=== PATIENT | male | born 1955 | race Caucasian/White ===

== ENCOUNTER 2020-05-10 10:01 | Outpatient (REF) | payer OTHER, SELFPAY ==
[2020-05-10 10:43] LABS: MANUAL DIFF FLAG NO
[2020-05-10 10:47] LABS: Basophils Percent Auto 0.5 % (0-2); Eosinophils Absolute Auto 0.2 X10*3/uL (0.0-0.4); Eosinophils Percent Auto 2.9 % (0-4); Hematocrit 45.7 % (42-52); Hemoglobin 15.5 g/dl (14.0-18.0); Imm Gran Abs Auto 0.01 X10*3/uL (0.00-0.03); Imm Gran Pct Auto 0.2 % (0.0-0.4); Lymphocytes Absolute Auto 2.2 X10*3/uL (1.2-4.9); Lymphocytes Percent Auto 36.9 % (20-40); Mean Corpuscular HGB Conc 33.9 g/dl (31.0-36.0); Mean Corpuscular Hemoglobin 32.6 pg (27.0-33.0); Monocytes Absolute Auto 0.7 X10*3/uL (0.1-1.2); Monocytes Percent Auto 11.6 % (2-11); Neutrophils Absolute Auto 2.9 X10*3/uL (2.0-8.3); Neutrophils Percent Auto 47.9 % (45-73); Platelet Count 258 X10*3/uL (160-400); Red Blood Count 4.76 X10*6/uL (4.60-5.80)
[2020-05-10 11:36] LABS: Alanine Aminotransferase 15 U/L (0-40); Albumin Level 4.2 g/dL (3.5-5.0); Alkaline Phosphatase 66 U/L (39-117); Anion Gap 9 (12-20); Aspartate Amino Transferase 19 U/L (5-37); Bilirubin Total 0.9 mg/dL (0.0-1.0); Blood Urea Nitrogen 17 mg/dL (9-16); Calcium 9.3 mg/dL (8.4-10.2); Carbon Dioxide 31 mmol/L (22-29); Chloride 104 mmol/L (96-108); Cholesterol 212 mg/dL; Estimated Glomerular Filt Rate > 60; Glucose Fasting 85 mg/dL (60-99); HDL Cholesterol 48 mg/dL; LDL Cholesterol Calculated 141 mg/dl; Potassium 4.4 mmol/l (3.3-5.1); Sodium 140 mmol/L (135-145); Total Protein 6.5 g/dL (6.5-8.0); Triglycerides 115 mg/dL
[2020-05-10 11:53] LABS: Prostate Specific Antigen 1.94 ng/mL (<0.05-4.0); T4 Thyroxine 7.8 ug/dL (4.5-12.0); Thyroid Stimulating Hormone 1.18 mIU/mL (0.32-4.0)
[2020-05-10 13:12] LABS: Vitamin B12 444 pg/mL (200-900)
== END 2020-05-10 10:02 | disposition home or self-care (01) ==
LOC: HO.LAB 10:01
PROVIDERS: PCP Internal Medicine; Visit Provider Internal Medicine
DX: Z00.00 Encounter for general adult medical examination without abnormal findings (principal); E78.00 Pure hypercholesterolemia, unspecified
CPT/HCPCS: 36415; 80053; 80061; 82607; 82746; 84153; 84436; 84443; 85025

== ENCOUNTER 2021-04-22 11:29 | Outpatient (REF) | payer OTHER, SELFPAY ==
[2021-04-22 11:46] LABS: MANUAL DIFF FLAG NO
[2021-04-22 11:57] LABS: Basophils Percent Auto 0.5 % (0-2); Eosinophils Absolute Auto 0.1 X10*3/uL (0.0-0.4); Eosinophils Percent Auto 2.2 % (0-4); Hematocrit 45.7 % (42-52); Hemoglobin 15.8 g/dl (14.0-18.0); Imm Gran Abs Auto 0.01 X10*3/uL (0.00-0.03); Imm Gran Pct Auto 0.2 % (0.0-0.4); Lymphocytes Absolute Auto 1.9 X10*3/uL (1.2-4.9); Lymphocytes Percent Auto 31.6 % (20-40); Mean Corpuscular HGB Conc 34.6 g/dl (31.0-36.0); Mean Corpuscular Hemoglobin 33.1 pg (27.0-33.0); Mean Corpuscular Volume 95.6 fL (80-98); Mean Platelet Volume 9.9 fL (9.4-12.4); Monocytes Absolute Auto 0.7 X10*3/uL (0.1-1.2); Monocytes Percent Auto 10.8 % (2-11); Neutrophils Absolute Auto 3.3 X10*3/uL (2.0-8.3); Neutrophils Percent Auto 54.7 % (45-73); Platelet Count 265 X10*3/uL (160-400); Red Blood Count 4.78 X10*6/uL (4.60-5.80); Red Cell Distribution Width 12.4 % (11.0-16.0)
[2021-04-22 12:22] LABS: Alanine Aminotransferase 22 U/L (0-40); Albumin Level 4.2 g/dL (3.5-5.0); Alkaline Phosphatase 68 U/L (39-117); Anion Gap 10 (12-20); Aspartate Amino Transferase 20 U/L (5-37); Bilirubin Total 0.9 mg/dL (0.0-1.0); Blood Urea Nitrogen 17 mg/dL (9-16); Calcium 9.6 mg/dL (8.4-10.2); Carbon Dioxide 27 mmol/L (22-29); Chloride 106 mmol/L (96-108); Cholesterol 220 mg/dL; Estimated Glomerular Filt Rate > 60; Glucose Random 89 mg/dL (60-115); HDL Cholesterol 57 mg/dL; LDL Cholesterol Calculated 145 mg/dl; Potassium 4.3 mmol/L (3.3-5.1); Sodium 139 mmol/L (135-145); Total Protein 6.5 g/dL (6.5-8.0); Triglycerides 92 mg/dL
[2021-04-22 12:43] LABS: Free T4 (Free Thyroxine) 1.02 ng/dL (0.71-1.85); Prostate Specific Antigen Scr 2.65 ng/mL (<0.05-4.0); Thyroid Stimulating Hormone 1.36 uIU/mL (0.32-4.0)
[2021-04-22 13:17] LABS: Folate 6.6 ng/mL (> or = 4.0); Vitamin B12 368 pg/mL (200-900)
== END 2021-04-22 11:30 | disposition home or self-care (01) ==
LOC: HO.LAB 11:29
PROVIDERS: PCP Internal Medicine; Visit Provider Internal Medicine
DX: E78.00 Pure hypercholesterolemia, unspecified (principal); Z12.5 Encounter for screening for malignant neoplasm of prostate
CPT/HCPCS: 36415; 80053; 80061; 82607; 82746; 84153; 84439; 84443; 85025

== ENCOUNTER 2022-04-08 07:38 | Outpatient (REF) | payer MEDICARE, SELFPAY ==
[2022-04-08 07:49] LABS: MANUAL DIFF FLAG NO
[2022-04-08 07:56] LABS: Basophils Percent Auto 0.3 % (0-2); Eosinophils Absolute Auto 0.2 X10*3/uL (0.0-0.4); Eosinophils Percent Auto 2.3 % (0-4); Hematocrit 47.2 % (42.0-52.0); Hemoglobin 16.2 g/dl (14.0-18.0); Imm Gran Abs Auto 0.01 X10*3/uL (0.00-0.03); Imm Gran Pct Auto 0.2 % (0.0-0.4); Lymphocytes Absolute Auto 1.8 X10*3/uL (1.2-4.9); Lymphocytes Percent Auto 26.3 % (20-40); Mean Corpuscular HGB Conc 34.3 g/dl (31.0-36.0); Mean Corpuscular Hemoglobin 32.7 pg (27.0-33.0); Mean Corpuscular Volume 95.2 fL (80.0-98.0); Mean Platelet Volume 9.7 fL (9.4-12.4); Monocytes Absolute Auto 0.9 X10*3/uL (0.1-1.2); Monocytes Percent Auto 13.1 % (2-11); Neutrophils Absolute Auto 3.9 x10*3/uL (2.0-8.3); Neutrophils Percent Auto 57.8 % (45-73); Platelet Count 264 X10*3/uL (160-400); Red Blood Count 4.96 X10*6/uL (4.60-5.80); Red Cell Distribution Width 12.2 % (11.0-16.0); White Blood Count 6.7 X10*3/uL (4.8-10.8)
[2022-04-08 08:26] LABS: Alanine Aminotransferase 14 U/L (0-40); Albumin Level 4.1 g/dL (3.5-5.0); Alkaline Phosphatase 72 U/L (39-117); Anion Gap 14 (12-20); Aspartate Amino Transferase 16 U/L (5-37); Blood Urea Nitrogen 11 mg/dL (9-16); Calcium 9.5 mg/dL (8.4-10.2); Carbon Dioxide 27 mmol/L (22-29); Chloride 105 mmol/L (96-108); Cholesterol 215 mg/dL; Estimated Glomerular Filt Rate > 60; Glucose Random 81 mg/dL (60-115); HDL Cholesterol 51 mg/dL; LDL Cholesterol Calculated 136 mg/dl; Potassium 4.3 mmol/L (3.3-5.1); Sodium 142 mmol/L (135-145); Total Protein 6.5 g/dL (6.5-8.0); Triglycerides 141 mg/dL
[2022-04-08 08:46] LABS: Free T4 (Free Thyroxine) 1.13 ng/dL (0.71-1.85); Thyroid Stimulating Hormone 2.43 uIU/mL (0.32-4.0)
[2022-04-08 09:04] LABS: Folate 6.5 ng/mL (> or = 4.0); Vitamin B12 358 pg/mL (200-900)
== END 2022-04-08 07:39 | disposition home or self-care (01) ==
LOC: HO.LAB 07:38
PROVIDERS: PCP Internal Medicine; Visit Provider Internal Medicine
DX: Z12.5 Encounter for screening for malignant neoplasm of prostate (principal); E78.00 Pure hypercholesterolemia, unspecified
CPT/HCPCS: 36415; 80053; 80061; 82607; 82746; 84153; 84439; 84443; 85025

== ENCOUNTER 2022-04-09 16:59 | Emergency (ER) | payer MEDICARE, SELFPAY ==
--- NOTE | ~2022-04-09 | CT_ITS ---
EXAMINATION: CT CERVICAL SPINE WITHOUT CONTRAST CLINICAL INFORMATION: Fall. Neck pain. COMPARISON: None TECHNIQUE: Axial images obtained through the cervical spine. Coronal and sagittal reformatted images are performed at the CT scanner This CT examination was performed using dose optimization techniques as appropriate, variously including the following: *Automated exposure control *Adjustment of mA and/or kV according to patient size (this includes techniques or standardized protocols for targeted exams where dose is matched to indication/reason for exam; i.e. extremities or head) *Use of iterative reconstruction technique DLP: 417.44 mGy-cm FINDINGS: No fracture. No subluxation. No prevertebral soft tissue swelling. There is degenerative disc disease. Cervical disc height narrowing C4-C5 and C5-C6 and C6-C7. Facet joints are normal. CT/CT cervical spine wo IV con IMPRESSION: No acute abnormality CT of cervical spine. Fleischner guidelines were followed.
--- NOTE | ~2022-04-09 | CT_ITS ---
EXAMINATION: CT head/brain wo IV con CLINICAL INFORMATION: Reason for Exam fall w. headstrike/seizure? COMPARISON: None. TECHNIQUE: Contiguous axial imaging was performed from the skull base to vertex without intravenous contrast. Sagittal and coronal reformatted images were obtained. This CT examination was performed using dose optimization techniques as appropriate, variously including the following: * Automated exposure control * Adjustment of mA and/or kV according to patient size (this includes techniques or standardized protocols for targeted exams where dose is matched to indication/reason for exam; i.e. extremities or head) Use of iterative reconstruction technique DLP: 1153 mGy-cm FINDINGS: Left parietal scalp hematoma. No underlying calvarial fracture. The mastoids are clear. Mild scattered paranasal sinus mucosal thickening. Small traumatic subarachnoid hemorrhage along the right sylvian fissure, right temporal convexity, and left superior parietal convexity. Possible trace small blood products along the inferolateral aspect of the right frontal horn (series 12 image 71). No other acute intracranial hemorrhage. No acute territorial edematous infarction. No abnormal mass effect or midline shift is seen. Patel to white matter differentiation is well preserved. No extra-axial fluid collections are identified. No hydrocephalus. No significant volume loss. Patchy periventricular and deep white matter hypoattenuation is consistent with mild small vessel ischemic changes. CT/CT head/brain wo IV con IMPRESSION: 1. Small traumatic subarachnoid blood products involving the right sylvian fissure and right temporal and left parietal convexities. Possible trace blood products in the right frontal horn of the lateral ventricle. No other acute intracranial hemorrhage. 2. Small left parietal scalp hematoma. No underlying calvarial fracture. Above impression was discussed with JOSE ANTONIO Upton on 04/09/2022 at 11:46 PM.
--- NOTE | ~2022-04-09 | XR_ITS ---
EXAMINATION: XR CHEST CLINICAL INFORMATION: Post intubation COMPARISON: None TECHNIQUE: Frontal view of the chest was obtained. FINDINGS: There is no endotracheal tube identified on this study. Cardiac leads overlie the chest. The lungs are well expanded. There is no focal consolidation, edema, or effusion. No pneumothorax. The cardiomediastinal silhouette is within normal limits. No acute osseous abnormality. XR/XR chest 1V IMPRESSION: Clear lungs. No endotracheal tube identified.
[2022-04-09 17:04] VITALS: BP 115/73; PULSE 74; RESP 18; TEMP 36.3; O2SAT 96; BMI 23.4
[2022-04-09 17:44] LABS: Basophils Percent Auto 0.2 % (0-2); Eosinophils Percent Auto 0.3 % (0-4); Imm Gran Abs Auto 0.04 X10*3/uL (0.00-0.03); Imm Gran Pct Auto 0.3 % (0.0-0.4); Mean Platelet Volume 9.9 fL (9.4-12.4); PLT CLUMP 1; SCAN SMEAR FLAG 1
[2022-04-09 17:46] LABS: Hematocrit 40.4 % (42.0-52.0); Hemoglobin 14.4 g/dl (14.0-18.0); Lymphocytes Absolute Auto 1.4 X10*3/uL (1.2-4.9); Lymphocytes Percent Auto 10.9 % (20-40); Mean Corpuscular HGB Conc 35.6 g/dl (31.0-36.0); Mean Corpuscular Hemoglobin 32.7 pg (27.0-33.0); Mean Corpuscular Volume 91.8 fL (80.0-98.0); Monocytes Absolute Auto 1.1 X10*3/uL (0.1-1.2); Monocytes Percent Auto 8.8 % (2-11); Neutrophils Absolute Auto 10.3 x10*3/uL (2.0-8.3); Neutrophils Percent Auto 79.5 % (45-73); Red Cell Distribution Width 11.7 % (11.0-16.0)
[2022-04-09 17:46] LABS: Appearance Urine Clear; Color Urine Yellow; Glucose Urine UA Negative (Negative); Leukocyte Esterase Urine Small (1+) (Negative); Nitrite Urine Negative (Negative); PH 5.5 (5.0-9.0); UMIC TRIGGER UACC YES; Urine Blood Small (1+) (Negative); Urine Ketones 40 mg/dL (Negative); Urine Protein Negative (Neg-Trace)
[2022-04-09 18:04] LABS: Anion Gap 19 (12-20); Blood Urea Nitrogen 9 mg/dL (9-16); Carbon Dioxide 21 mmol/L (22-29); Chloride 92 mmol/L (96-108); Creatinine Clr Calc Pharmacy 101.8; Estimated Glomerular Filt Rate > 60; Glucose Random 90 mg/dL (60-115); Platelet Count 221 X10*3/uL (160-400); Potassium 3.9 mmol/L (3.3-5.1); Sodium 128 mmol/L (135-145)
[2022-04-09 18:05] LABS: MANUAL DIFF FLAG SCAN
[2022-04-09 18:10] LABS: Bacteria Urine None Seen (None Seen); Hyaline Casts Urine 0-2 /LPF (0-2); RBC Urine 0-2 /HPF (0-2); Squamous Epithelial Cell Urine 0-2 /HPF (0-2); UACC Culture Trigger YES; WBC Urine 0-5 /HPF (0-5)
[2022-04-09 18:29] LABS: SLIDE REVIEW VERIFIED
[2022-04-09 22:21] VITALS: BP 147/70; PULSE 66; RESP 18; TEMP 36.8; O2SAT 98
[2022-04-09] MEDS: Ondansetron ODT 4 MG TAB.RAPDIS TRANSLINGU (22:49)
--- NOTE | 2022-04-09 22:50 | PC.NURSE ---
Patient states he has been dry heaving in the bathroom. Zofran ODT administrated. Declined tylenol at this time
--- NOTE | 2022-04-09 23:08 | ED.MALEGU ---
HPI - Male Genitourinary General Chief complaint: Urogenital-Male Stated complaint: Kidney Stones Time Seen by Provider: 04/09/22 23:06 Source: family Mode of arrival: ambulatory Limitations: altered mental status History of Present Illness HPI Narrative: This is a 66-year-old male no significant medical history presenting to the emergency department for complaints of left-sided flank pain, dysuria with concerns of kidney stones X3 days. Patient also had vague complaints of nausea, according to she thinks he passed a kidney stone about 1 day ago. I was called to the waiting room for a patient who was seizing, according to he was standing up, was having severe L flank pain, fell ?syncope, hit his head and then started having a seizure moments after, the seizure was witnessed by other patients, when I arrived he was having a tonic clonic seizure with head strike atleast 20 seconds whitnessed by this FLORENTINO. Patient unable to answer my questions GCS of 9, at the bedside, patient was immediately collared, placed on a backboard and brought into the emergency department for immediate evaluation/stroke protocol based off mechanism. Ordered CT of the head, cervical spine, chest, abdomen and pelvis STAT, called [facility] for STAT stroke read. Patient has no seizure history, no hx of syncopal episodes. Patient is not on anticoagulants. Unable to obtain hx from patient hx obtained from . Related Data Home Medications Medication Instructions Recorded Confirmed No Known Home Meds 04/17/21 04/17/21 Allergies Allergy/AdvReac Type Severity Reaction Status Date / Time No Known Allergies Allergy Verified 04/17/21 11:33 Review of Systems Review of Systems: Yes Unobtainable due to mental status PMFSH Past Medical History Attestation statement: The following information was validated with the patient. Source: old records reviewed and nursing notes reviewed Medical History BPH (benign prostatic hyperplasia) Hypercholesterolemia MRSA infection Renal calculi Surgical History History of tonsillectomy Social History Social History Housing: Apartment Alcohol intake: current Patient Tobacco Use Status: Never used Tobacco e-Cigarette/Vaping Use: Never Used Advance Directives: No Advance Directives Information Provided: No service: No Current occupational status: retired Physical Exam Vital Signs: Vital Signs: Last Vital Signs Temp 98.2 F 04/09/22 22:21 Pulse 66 04/09/22 22:21 Resp 18 04/09/22 22:21 BP 147/70 H 04/09/22 22:21 Pulse Ox 98 04/09/22 22:21 O2 Del Method 04/09/22 22:21 BMI result Body Mass Index 23.4 Vital signs stable Appearance: GCS score of 9 Not responding to questions, opening eyes, drooling. Combative. Moving all extremities. ? Head: Normocephalic, + traumatic head with a large hematoma to the left occiput Eyes: Pupils equal, round and reactive to light.? However bilateral pupils pinpoint s/p fall Neck: Normal inspection.? Neck supple.?In collar CVS: Normal heart rate and rhythm.? Pulses normal.? Respiratory: No respiratory distress.? Breath sounds normal.? Abdomen: Soft and nontender.? Skin: Skin warm and dry.? Normal skin color.? Normal skin turgor.? Extremities: No lower extremity edema. Patient moving all extremities freely. Back: No midline tenderness, no C-spine tenderness, full range of motion, no CVA tenderness bilaterally Neuro: Patient with altered mental status likely secondary to fall, concerns of head bleed versus postictal. Not following commands. Not speaking. Opening eyes. Moving all extremities. Combative. Unable to obtain a thorough neurological examination due to patient not being able to participate.. Course Reevaluation(s) Reevaluation #1: Based off my gross read patient noted to have a right-sided subarachnoid hemorrhage and possible bleeding into the right ventricle. Patient combative, altered, I do not suspect that he is postictal at this time, GCS score of 8, at this time patient will be intubated as he is having difficulty controlling his own airway. 2 mg of Versed was given and despite this patient continued to be combative,. My attending Dr. Reynolds at this time at bedside. Will intubate with 20 mg of etomidate, 80 mg of rocuronium. Time: 23:48 Reevaluation #2: Cough from Tyron who states patient has small subarachnoid hemorrhage to the right, and possibly bleeding into the right ventricle. Noted to have a left hematoma. Immediately called [facility] for trauma transfer. Time: 11:46 Reevaluation #3: Patient accepted at [facility] as a trauma category 1. Patient successfully intubated. Vital signs stable. Propofol will be initiated at this time per protocol. Patient's INR is within normal limits. I had a conversation with and explained situation to her, she tells me that he was complaining of severe left-sided flank pain for few days, was told to come in for further evaluation and treatment. He does have a history of kidney stones. She does know that patient now has a brain bleed likely secondary to head trauma. She reiterates he is not on blood thinners and has no significant medical history. She tells me what happened was that he started complaining of severe left-sided flank pain, turned pale, syncopized, hit his head did moments later started seizing. [facility] called for trauma transfer by laboratory secretary. Time: 23:54 Additional Reevaluation(s): [facility] to come get patient with an ALS crew. MDM - Male Genitourinary MDM Narrative Medical decision making narrative: 2302 Reported fall in waiting room this PA-C responded to this in the waiting room 2315 Delay in obtaining head CT secondary to CT scan being occupied by another patient. Waiting the hallway with patient, IV lines being placed, more info obtained from . 2320 66-year-old male presenting to the emergency department initially for left flank pain concerns of kidney stones X3 days. However I was called to the waiting room for male who had a ? syncopal episode, hit his head and then started seizing. Patient stopped seizing without need of medication. Immediately when this happened patient was placed in a collar, put on a spinal board, moved to the stretcher and brought to CT for STAT imaging. Concerns for possible intracranial hemorrhage based off patient's presentation when I saw him. GCS 9 Physical examination patient with a GCS of 9, unable to obtain an accurate neuro exam as patient is not responding or following commands. Regular rate and rhythm, lungs clear, abdomen soft nontender nondistended. Bilateral pupils pinpoint however reactive. Patient moving all extremities, combative. at the bedside. Plan at this time is labs, PT INR, imaging of the head, cervical spine, chest, abdomen and pelvis. Will rule out intracranial hemorrhage, cervical spine fracture. Less urgent will rule out kidney stones, infection, UTI. Patient had labs obtained in the waiting room which showed a slightly elevated white blood cell count, a sodium of 128, lower than patient's baseline. Coags within normal limits. Urine with white blood cells and blood. COVID negative Medical Records Attestation: I reviewed the patient's medical records. Lab Data Attestation: I reviewed the patient's lab results. Result diagrams: 04/09/22 17:39 04/09/22 17:39 Labs: Lab Results 04/09/22 04/09/22 04/09/22 Range/Units 17:18 17:39 17:39 WBC 13.0 H (4.8-10.8) X10*3/uL RBC 4.40 L (4.60-5.80) X10*6/uL Hgb 14.4 (14.0-18.0) g/dl Hct 40.4 L (42.0-52.0) % MCV 91.8 (80.0-98.0) fL MCH 32.7 (27.0-33.0) pg MCHC 35.6 (31.0-36.0) g/dl RDW 11.7 (11.0-16.0) % Plt Count 221 (160-400) X10*3/uL MPV 9.9 (9.4-12.4) fL Immature Gran % (Auto) 0.3 (0.0-0.4) % Neut % (Auto) 79.5 H (45-73) % Lymph % (Auto) 10.9 L (20-40) % [place] % (Auto) 8.8 (2-11) % Eos % (Auto) 0.3 (0-4) % Baso % (Auto) 0.2 (0-2) % Lymph # (Auto) 1.4 (1.2-4.9) X10*3/uL [place] # (Auto) 1.1 (0.1-1.2) X10*3/uL Eos # (Auto) 0.0 (0.0-0.4) X10*3/uL Baso # (Auto) 0.0 (0.0-0.2) X10*3/uL Abs Immat Gran (auto) 0.04 H (0.00-0.03) X10*3/uL Absolute Neuts (auto) 10.3 H (2.0-8.3) x10*3/uL Absolute Nucleated RBC 0.000 (0.0-0.012) X10*3/uL Nucleated RBC % (auto) 0.0 (0.0-0.2) /100WBC Smear Tech's Comments VERIFIED Sodium 128 L (135-145) mmol/L Potassium 3.9 (3.3-5.1) mmol/L Chloride 92 L (96-108) mmol/L Carbon Dioxide 21 L (22-29) mmol/L Anion Gap 19 (12-20) BUN 9 (9-16) mg/dL Creatinine 0.77 (0.5-1.4) mg/dL Estim Creat Clear Calc 101.8 Estimated GFR > 60 Random Glucose 90 (60-115) mg/dL Calcium 9.0 (8.4-10.2) mg/dL Urine Color Yellow Urine Appearance Clear Urine pH 5.5 (5.0-9.0) Ur Specific [place] 1.010 (1.005-1.025) Urine Protein Negative (Neg-Trace) mg/dL Urine Glucose (UA) Negative (Negative) mg/dL Urine Ketones 40 (Negative) mg/dL Urine Blood Small (1+) H (Negative) Urine Nitrite Negative (Negative) Ur Leukocyte Esterase Small (1+) H (Negative) Urine RBC 0-2 (0-2) /HPF Urine WBC 0-5 (0-5) /HPF Ur Squamous Epith Cells 0-2 (0-2) /HPF Urine Bacteria None Seen (None Seen) Hyaline Casts 0-2 (0-2) /LPF Critical Care Time Critical Care Time Critical Care Time: Yes Total Critical Care Time: 60 Attestation: I attest to this time spent taking care of the patient, obtaining history, physical, reviewing labs, imaging, speaking to my attending, speaking to specialist. Discharge Plan Discharge Clinical Impression: Intracranial hemorrhage, AMS (altered mental status), Seizure, Syncope, Dysuria, Left flank pain Patient Disposition: Xfer Acute Care Hospital Transfer Details: Trauma category 1 transfer to [facility] excepting physician Dr. Porter Prescriptions: No [facility] No Known Home Meds
[2022-04-09] MEDS: Midazolam HCl/PF 2 MG/2 ML VIAL IVPUSH (23:15)
[2022-04-09 23:45] LABS: INTERNATIONAL NORM RATIO 1.1 (0.9-1.1); Prothrombin Time 12.3 SEC (10.0-13.1)
[2022-04-09] MEDS: Etomidate 20 MG/10 ML VIAL IVPUSH (23:46)
--- NOTE | 2022-04-09 23:49 | PC.NURSE ---
Call out to [facility] [id number].
[2022-04-09 23:56] LABS: COVID-19 Test Negative (Negative)
[2022-04-10] VITALS (10 sets, daily range): BP systolic 130–193; BP diastolic 78–103; PULSE 87–115; RESP 14–24; TEMP 36.7; O2SAT 100
--- NOTE | 2022-04-10 00:16 | PC.NURSE ---
[facility] calls back and accepts pt at 2350. Dr Porter accepted.
--- NOTE | 2022-04-10 00:17 | PC.NURSE ---
[facility] called for STAT ALS unit to transport pt at 0000. [facility] unable to transport due to not having a vent. Bypassed to [facility]. [facility] en route to transport pt to [facility] @ 0010.
[2022-04-10] MEDS: propofoL 1,000 MG/100 ML VIAL 13.72 MG IVCONT (00:30)
[2022-04-10] MEDS: levETIRAcetam in NaCl (iso-os) 1,000 MG/100 ML PIGGYBACK 400 MG IV (00:36)
--- NOTE | 2022-04-10 00:40 | PC.NURSE ---
[facility] arrives at 0040 to transport pt to [facility].
[2022-04-10] MEDS: Midazolam HCl/PF 2 MG/2 ML VIAL 4 MG IVPUSH (01:15)
--- NOTE | 2022-04-10 01:22 | PC.NURSE ---
[facility] departs ED, en route to [facility].
--- NOTE | 2022-04-10 01:32 | PC.NURSE ---
late note: pt coming in for flank pain, query kidney stones syncopal episode in waiting room, + headstrike w tonic clonic seizure - c-collar applied, pt to CT, left sided hematoma to back of head 2mg versed given at 2315 pt intubated at 2346 pt hypertensive, tachycardic and fighting vent - max propofol dosage additional 4mg versed given IV per verbal provider order pt transferred to [facility], pt belongings taken by , RN-RN report given.
--- NOTE | 2022-04-10 07:53 | PC.NURSE ---
Incident report filed; [id number]
== END 2022-04-10 03:31 | disposition short-term general hospital (02) ==
PROVIDERS: Physician Assistant; Emergency Provider Emergency Medicine; PCP Internal Medicine
DX: R56.9 Unspecified convulsions (principal); R30.0 Dysuria; R40.2430 Glasgow coma scale score 3-8, unspecified time; M54.2 Cervicalgia; R51.9 Headache, unspecified; R06.02 Shortness of breath; Z20.822 Contact with and (suspected) exposure to COVID-19; Z79.899 Other long term (current) drug therapy
CPT/HCPCS: 31500; 36415; 70450; 71045; 72125; 80048; 81001; 85025; 85610; 87086; 87635; 94002; 96365; 96372; 96375; 96376; 99285; J1953; J2250

== ENCOUNTER 2023-06-21 17:07 | Outpatient (AMB) | payer MEDICARE, SELFPAY ==
--- NOTE | 2023-06-21 17:13 | A.OFFVIS_ITS ---
Intake Vital Signs 06/21/23 17:15 Height 5 ft 11 in Weight 157 lb BMI 21.9 BP 122/80 Blood Pressure Location Lt brachial Position Sitting Pulse 69 Pulse Source Pulse Oximeter Pulse Oximetry (%) 98 Oxygen Delivery Method Room Air Intake Visit Reasons: SUBSEQUENT WELLNESS Intake Note: Patient here for subsequent annual visit Indian Nanny Required: No Accompanied by: Self / Same As Patient Allergies No Known Allergies Allergy (Verified 06/21/23 17:23) Medication List - Last Reconciled 06/21/23 by Kong Appiah MD No Known Home Meds HPI SUBSEQUENT WELLNESS HPI Details 67-year-old male with a history of hyper cholesterolemia nephrolithiasis BPH seizure disorder coming in for annual wellness visit. Last seen last year. Colonoscopy is up-to-date. Patient has been following up with urology May 2023 has had ureteroscopy on the left side, had a right ESWL in July. Ultrasound showing residual stone confirming 1.5 cm right lower pole stone unchanged patient would like to have ureteroscopy again, 07/12/2023. this week Dermatoloy for skin check [facility] Medical History (Updated 06/21/23 @ 17:36 by Kong Appiah MD) Annual physical exam MRSA infection Renal calculi BPH (benign prostatic hyperplasia) Hypercholesterolemia Surgical History Left renal stone History of tonsillectomy Family History Father Brain cancer Mother Thyroid cancer (Updated 06/21/23 @ 17:44 by Kong Appiah MD) Housing: Apartment Alcohol intake: current Alcohol intake frequency: a few times a month Alcohol type: wine Patient Tobacco Use Status: Never used Tobacco e-Cigarette/Vaping Use: Never Used service: No Current occupational status: retired Cognitive needs: No Hearing needs: No Vision needs: Yes (Glasses) Questionnaire Medicare Wellness Checkup [age] 65-70 What gender do you identify with?: male During the past 4 weeks, how much have you been bothered by emotional problems such as feeling anxious, depressed, irritable, sad or downhearted, and blue?: slightly During the past 4 weeks, has your physical & emotional health limited your social activities with family, friends, neighbors, or groups?: not at all During the past 4 weeks, how much bodily pain have you generally had?: no pain During the past 4 weeks, was someone available to help you if you needed & wanted help?: yes, as much as I wanted During the past 4 weeks, what was the hardest physical activity you could do for at least 2 minutes?: moderate Can you get to places out of walking distance without help? (For eg., can you travel alone on buses, taxis or drive your car?): Yes Can you go shopping for groceries or clothes without someone's help?: Yes Can you prepare your own meals?: Yes Can you do your housework without help?: Yes Because of any health problems, do you need the help of another person with your personal care needs such as eating, bathing, dressing or getting around the house?: No Can you handle your own money without help?: Yes During the past 4 weeks, how would you rate your health in general?: very good During the past 4 weeks how have things been going for you?: good & bad parts about equal Are you having difficulties driving your car?: no Do you always fasten your seat belt when you are in a car?: yes, usually During past 4 weeks, have you been bothered by the following: never: Falling or dizzy when standing up, Sexual problems?, Trouble eating well?, Teeth or denture problems?, Problems using the telephone? and Tiredness or fatigue? Have you fallen 2 or more times in the past year?: No Are you a smoker?: no During the past 4 weeks, how many drinks of wine, beer, or other alcoholic beverages did you have?: 1 drink or less per week Have you been given information to help with the following?: no: Hazards in your house that might hurt you? and no: Keeping track of your medications? How often do you have trouble taking medicines the way you have been told to take them?: I do not have to take medicine How confident are you that you can control & manage most of your health problems?: very confident What is your race?: White PHQ-9 Over the last 2 weeks, how often have you been bothered by any of the following problems? 1. Little interest or pleasure in doing things: not at all 2. Feeling down, depressed, or hopeless: several days 3. Trouble falling or staying asleep, or sleeping too much: not at all 4. Feeling tired or having little energy: not at all 5. Poor appetite or overeating: not at all 6. Feeling bad about yourself - or that you are a failure or have let yourself or your family down: not at all 7. Trouble concentrating on things, such as reading the newspaper or watching television: not at all 8. Moving or speaking so slowly that other people could have noticed. Or the opposite - being so fidgety or restless that you have been moving around a lot more than usual: not at all 9. Thoughts that you would be better off or of hurting yourself in some way: not at all Total score: 1 Source: Developed by Drs. Magdi Ceron, Bhavya Mcnally, Darrel Marc and colleagues, with an educational mervat from [employer]. ANKITA-7 AMB Questionnaire ANKITA-7 Date ANKITA - 7 assessed: 06/21/23 Feeling nervous, anxious, or on edge: 0 = Not at all Not being able to stop or control worryin = Not at all Worrying too much about different things: 0 = Not at all Trouble relaxin = Not at all Being so restless that it is hard to sit still: 0 = Not at all Becoming easily annoyed or irritable: 0 = Not at all Feeling afraid as if something awful might happen: 0 = Not at all Total ANKITA-7 score (0-4 normal; 5-9 mild; 10-14 moderate; 15-21 severe): 0 Source: Developed by Drs. Magdi Ceron, Bhavya Mcnally, Darrel Marc and colleagues, with an educational mervat from [employer]. Review of Systems Const Denies poor appetite and Denies weakness Eyes Denies no additional complaints ENT Reports Normal hearing present, Denies dizziness, Denies nasal congestion, Denies tinnitus and Denies sore throat Card Denies chest pain, Denies syncope, Denies rapid heart rate and Denies dyspnea Resp Denies cough and Denies dyspnea GI Denies change in stool character, Reports constipation, Denies diarrhea, Denies nausea and Denies vomiting Denies dysuria and Denies urinary frequency Neuro Reports Normal hearing present, Denies confusion, Denies dizziness, Denies syncope and Denies weakness Psych Denies confusion Physical Exam Vital Signs: Last Vital Signs Pulse 69 06/21/23 17:15 BP 122/80 06/21/23 17:15 Pulse Ox 98 06/21/23 17:15 Oxygen Delivery Method Room Air 06/21/23 17:15 BMI result Body Mass Index 21.9 Const General: No confusion Orientation/consciousness: No confusion HEENT Head: Yes normocephalic Ears: external ears normal and TM's normal bilaterally Face and sinus: Yes normal facial exam Mouth: moist mucous membranes Throat: Yes tonsils normal Eyes Conjunctivae: conjunctivae normal Pupils: Equal, round and reactive pupils present and Pupil accommodation reflex normal Direct Ophthalmoscopy: normal light reflex Neck Neck: No lymphadenopathy Thyroid: Thyroid normal Chest Chest palpation & inspection: normal inspection of the chest Resp Effort & Inspection: normal respiratory effort and no audible wheezes Auscultation: clear to auscultation bilaterally, no crackles, no wheezes and lung sounds not diminished Cardio Rate: regular rate Rhythm: regular rhythm Peripheral pulses: radial pulses present and dorsalis pedis present GI Other: guaiac neg prostate enlarged Palpation (GI): no masses Auscultation: normal bowel sounds and normoactive bowel sounds Male General Exam: Yes normal external exam Skin General skin exam: no rashes or lesions noted Rashes: no rashes Neuro General: No confusion Cranial nerves: Yes Equal, round and reactive pupils present and Yes Normal hearing present Cognition (Neuro): normal cognition Gait exam (Neuro): Normal gait present Motor exam (neuro): 5/5 motor strength present throughout Deep tendon reflexes (DTR's): Right brachioradialis reflex intensity grade: 2+, Left brachioradialis reflex intensity grade: 2+, Right patellar reflex intensity grade: 2+ and Left patellar reflex intensity grade: 2+ Extrem General: No edema Assessment & Plan Assessment & Plan (1) Medicare annual wellness visit, initial: Code(s): Z00.00 - Encounter for general adult medical examination without abnormal findings (2) Right renal stone: Code(s): N20.0 - Calculus of kidney Plan: Patient is following up with urology and planned ureteroscopy. (3) Seizure disorder: Comment: March 2022 Code(s): G40.909 - Epilepsy, unspecified, not intractable, without status epilepticus Plan: Stable (4) Hypercholesterolemia: Code(s): E78.00 - Pure hypercholesterolemia, unspecified Plan: Avoid fried foods, chicken skin, eggs, butter margarine, pastries and meat. Be it pork or beef they have a lot of cholesterol LDL goal of less than 130 and triglyceride of less than 150 this was from a blood work last year. (5) BPH (benign prostatic hyperplasia): Code(s): N40.0 - Benign prostatic hyperplasia without lower urinary tract symptoms Plan: Stable Orders: Orders Prostate Specific Antigen Scr Today N40.0 - Benign prostatic hyperplasia without lower urinary tract symptoms Comprehensive Met. Panel Today E78.00 - Pure hypercholesterolemia, unspecified Free T4 (Free Thyroxine) Today E78.00 - Pure hypercholesterolemia, unspecified Complete Blood Count Auto Diff Today E78.00 - Pure hypercholesterolemia, unspecified Lipid Panel Today E78.00 - Pure hypercholesterolemia, unspecified Thyroid Stimulating Hormone Today E78.00 - Pure hypercholesterolemia, unspecified Vitamin B12 and Folate Today E78.00 - Pure hypercholesterolemia, unspecified Quality Reporting (2019) Depression/Bipolar (159/160/161/177) PHQ-9: Total score: 1 Coding Level of Care Code Medicare Subsequent (G0439) Diagnoses Medicare annual wellness visit, initial Z00.00 Right renal stone N20.0 Seizure disorder G40.909 Hypercholesterolemia E78.00 BPH (benign prostatic hyperplasia) N40.0
[2023-06-21 17:15] VITALS: BP 122/80; PULSE 69; O2SAT 98; BMI 21.9
== END 2023-06-21 17:59 | disposition home or self-care (01) ==
LOC: HO.HMGH 17:07
PROVIDERS: PCP Internal Medicine; Visit Provider Internal Medicine
DX: Z00.00 Encounter for general adult medical examination without abnormal findings (principal); N20.0 Calculus of kidney; G40.909 Epilepsy, unspecified, not intractable, without status epilepticus; E78.00 Pure hypercholesterolemia, unspecified; N40.0 Benign prostatic hyperplasia without lower urinary tract symptoms
CPT/HCPCS: G0439

== ENCOUNTER 2023-11-18 15:44 | Outpatient (AMB) | payer MEDICARE, SELFPAY ==
[2023-11-18 15:46] VITALS: BP 136/78; PULSE 75; O2SAT 97; BMI 22.9
--- NOTE | 2023-11-18 15:46 | A.OFFPC_ITS ---
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 Patient's colonoscopy is up-to-date December 2018 review of the notes has seen Urology 11/18/2023 for nephrolithiasis had a ureteroscopy and shockwave in the past 8 mm left lower pole 3 mm midpole advised shockwave. CT scan done 11/09/2023 incidental finding of grade 1 anterolisthesis L5-S1 secondary to bilateral L5 spondylosis. Prostatic enlargement. ER visit June ureteral stenting June 2023 UTI. problem of 6 years ago- scrotum rash but had blood collection- was able to cauterize. was prescribed a striptic pencil (to cauterize) 1 month ago had another problem [facility] Medical History (Updated 11/18/23 @ 16:34 by Kong Appiah MD) Annual physical exam MRSA infection Renal calculi BPH (benign prostatic hyperplasia) Hypercholesterolemia Surgical History Left renal stone History of tonsillectomy Family History Father Brain cancer Mother Thyroid cancer Social History (Updated 06/21/23 @ 17:44 by Kong Appiah MD) Housing: Apartment Alcohol intake: current Alcohol intake frequency: a few times a month Alcohol type: wine Comment: 2x a month glass Patient Tobacco Use Status: Never used Tobacco e-Cigarette/Vaping Use: Never Used service: No Current occupational status: retired Cognitive needs: No Hearing needs: No Vision needs: Yes (Glasses) Questionnaire PHQ-9 Over the last 2 weeks, how often have you been bothered by any of the following problems? 1. Little interest or pleasure in doing things: not at all 2. Feeling down, depressed, or hopeless: several days 3. Trouble falling or staying asleep, or sleeping too much: not at all 4. Feeling tired or having little energy: not at all 5. Poor appetite or overeating: not at all 6. Feeling bad about yourself - or that you are a failure or have let yourself or your family down: not at all 7. Trouble concentrating on things, such as reading the newspaper or watching television: not at all 8. Moving or speaking so slowly that other people could have noticed. Or the opposite - being so fidgety or restless that you have been moving around a lot more than usual: not at all 9. Thoughts that you would be better off or of hurting yourself in some way: not at all Total score: 1 Depression Screening Interpretation: Negative Depression Screening Done: Yes 23261 - PHQ-9 Billing: Yes Source: Developed by Drs. Magdi Ceron, Bhavya Mcnally, Darrel Marc and colleagues, with an educational mervat from [employer]. Thrive Questionnaire Date Thrive assessed: 11/18/23 I am a: Patient What is your living situation today?: I have a steady place to live Within the past 12 months, did the food you bought not last and you didn't have the money to get more?: Never true Within the past 12 months, did you worry whether your food would run out before you got money to buy more?: Never true Do you have trouble paying for medicines?: No Do you have trouble getting transportation to medical appointments?: No Do you have trouble paying your heating and electricity bill?: No Do you have trouble taking care of your child, family member or friend?: No Do you have trouble with day-to-day activities such as bathing, preparing meals, shopping, managing finances, etc.?: No Are you currently unemployed and looking for a job?: No Are you interested in more education?: No Please select the resources that you would like help with: None Currently or been in a relationship where the following occur: no concerns reported THRIVE Score: 0 AUDIT C Alcohol Use Questionnaire (AUDIT-C) 1. How often do you have a drink containing alcohol?: Never 3. How often do you have six or more drinks on one occasion?: Never Total Score: 0 ANKITA-7 AMB Questionnaire ANKITA-7 Date ANKITA - 7 assessed: 11/18/23 Source: Developed by Drs. Magdi Ceron, Bhavya Mcnally, Darrel Marc and colleagues, with an educational mervat from [employer]. Physical exam (Primary Care) Vital Signs: Last Vital Signs Pulse 75 11/18/23 15:46 BP 136/78 11/18/23 15:46 Pulse Ox 97 11/18/23 15:46 Oxygen Delivery Method Room Air 11/18/23 15:46 Care Plan Goal for BP management: scrotal 1 mm multiple papular maroon colored rash BMI result Body Mass Index 22.9 Tobacco/Smoking Status: Tobacco use Status Tobacco use date assessed 11/18/23 11/18/23 15:47 Patient Tobacco Use Status Never used Tobacco 11/18/23 15:47 e-Cigarette/Vaping Use Never Used 11/18/23 15:47 PHQ-9: PHQ-9 Score PHQ-9: Total score 1 11/18/23 15:47 Depression Screening Interpretation: Negative Thrive Assessment: Date of Thrive Assessment Date Thrive assessed 11/18/23 11/18/23 15:47 Currently or been in a relationship where the following occur: no concerns reported Const General: alert; No acute distress Eyes Conjunctivae: conjunctivae normal Resp Auscultation: clear to auscultation bilaterally Cardio Rate: regular rate Rhythm: regular rhythm GI Inspection: Yes normal to inspection Extrem General: Yes normal to inspection and No edema Assessment and Plan Assessment & Plan (1) Right renal stone: Code(s): N20.0 - Calculus of kidney Plan: Keep well hydrated patient follows up with urology for possible shockwave/ESWL (2) Seizure disorder: Comment: March 2022 Code(s): G40.909 - Epilepsy, unspecified, not intractable, without status epilepticus Plan: Stable (3) BPH (benign prostatic hyperplasia): Code(s): N40.0 - Benign prostatic hyperplasia without lower urinary tract symptoms Plan: Continue to monitor (4) Hypercholesterolemia: Code(s): E78.00 - Pure hypercholesterolemia, unspecified Plan: Avoid fried foods, chicken skin, eggs, butter margarine, pastries and meat. 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 advised to follow up with urology Coding Level of Care Code Est Pt Level 4 (15948) Diagnoses Right renal stone N20.0 Seizure disorder G40.909 BPH (benign prostatic hyperplasia) N40.0 Hypercholesterolemia E78.00 Angiokeratoma of scrotum D29.4
== END 2023-11-18 16:42 | disposition home or self-care (01) ==
PROVIDERS: PCP Internal Medicine; Visit Provider Internal Medicine
DX: N20.0 Calculus of kidney (principal); G40.909 Epilepsy, unspecified, not intractable, without status epilepticus; N40.0 Benign prostatic hyperplasia without lower urinary tract symptoms; E78.00 Pure hypercholesterolemia, unspecified; D29.4 Benign neoplasm of scrotum
CPT/HCPCS: 99214

== ENCOUNTER 2023-12-28 15:33 | Outpatient (AMB) | payer MEDICARE, SELFPAY ==
--- NOTE | 2023-12-28 15:35 | MHC.PC.OV ---
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 Last seen in 11/13/2023. Patient's colonoscopy is due. Review of the notes has seen Urology planned ESWL. Patient also had a CT scan of the abdomen 11/13/2023 showing cystitis, right hydronephrosis resolution with removal of the distal right ureteral calculi simple right renal cyst prostate enlarged grade 1 anterolisthesis L5-S1 secondary to bilateral L5 spondylolysis.. did pass stone and advised CT scan again. in 2 days. 2 weeks ago R hip pain nofall or gtrauma or bruise PFSH Medical History (Updated 12/28/23 @ 16:23 by Kong Appiah MD) Annual physical exam MRSA infection Renal calculi BPH (benign prostatic hyperplasia) Hypercholesterolemia Surgical History Left renal stone History of tonsillectomy Family History Father Brain cancer Mother Thyroid cancer Social History (Updated 06/21/23 @ 17:44 by Kong Appiah MD) Housing: Apartment Alcohol intake: current Alcohol intake frequency: a few times a month Alcohol type: wine Comment: 2x a month glass Patient Tobacco Use Status: Never used Tobacco e-Cigarette/Vaping Use: Never Used service: No Current occupational status: retired Cognitive needs: No Hearing needs: No Vision needs: Yes (Glasses) Questionnaire Thrive Questionnaire Date Thrive assessed: 11/18/23 I am a: Patient What is your living situation today?: I have a steady place to live Within the past 12 months, did the food you bought not last and you didn't have the money to get more?: Never true Within the past 12 months, did you worry whether your food would run out before you got money to buy more?: Never true Do you have trouble paying for medicines?: No Do you have trouble getting transportation to medical appointments?: No Do you have trouble paying your heating and electricity bill?: No Do you have trouble taking care of your child, family member or friend?: No Do you have trouble with day-to-day activities such as bathing, preparing meals, shopping, managing finances, etc.?: No Are you currently unemployed and looking for a job?: No Are you interested in more education?: No Please select the resources that you would like help with: None Currently or been in a relationship where the following occur: no concerns reported THRIVE Score: 0 AUDIT C Alcohol Use Questionnaire (AUDIT-C) 1. How often do you have a drink containing alcohol?: Never 3. How often do you have six or more drinks on one occasion?: Never Total Score: 0 ANKITA-7 AMB Questionnaire ANKITA-7 Date ANKITA - 7 assessed: 11/18/23 Source: Developed by Drs. Magdi Ceron, Bhavya Mcnally, Darrel Marc and colleagues, with an educational mervat from [employer]. Physical exam (Primary Care) Vital Signs: Last Vital Signs Pulse 74 12/28/23 15:36 BP 108/70 12/28/23 15:36 Pulse Ox 96 12/28/23 15:36 Oxygen Delivery Method Room Air 12/28/23 15:36 BMI result Body Mass Index 22.6 Tobacco/Smoking Status: Tobacco use Status Tobacco use date assessed 12/28/23 12/28/23 15:36 Patient Tobacco Use Status Never used Tobacco 12/28/23 15:36 e-Cigarette/Vaping Use Never Used 12/28/23 15:36 Thrive Assessment: Date of Thrive Assessment Date Thrive assessed 11/18/23 12/28/23 15:36 Currently or been in a relationship where the following occur: no concerns reported Const General: alert; No acute distress Eyes Conjunctivae: conjunctivae normal Resp Auscultation: clear to auscultation bilaterally Cardio Rate: regular rate Rhythm: regular rhythm GI Inspection: Yes normal to inspection Extrem General: Yes normal to inspection and No edema Assessment and Plan Assessment & Plan (1) Left renal stone: Comment: March 2022, cystoscopy with ureteral stent left Code(s): N20.0 - Calculus of kidney Plan: Patient is seeing Urology and planned ESWL (2) Hypercholesterolemia: Code(s): E78.00 - Pure hypercholesterolemia, unspecified Plan: Avoid fried foods, chicken skin, eggs, butter margarine, pastries and meat. Be it pork or beef they have a lot of cholesterol (3) Colon cancer screening: Comment: [address] Alvares Code(s): Z12.11 - Encounter for screening for malignant neoplasm of colon Plan: One thousand nineteen last colon test and advised in 7 years. (4) BPH (benign prostatic hyperplasia): Code(s): N40.0 - Benign prostatic hyperplasia without lower urinary tract symptoms Plan: Incidental finding on the CT scan looking for the nephrolithiasis, presently asymptomatic (5) Right hip pain: Code(s): M25.551 - Pain in right hip Plan: X-ray requested for the hip joint Orders: Orders XR hip RT w PEL1V Today M25.551 - Pain in right hip Coding Level of Care Code Est Pt Level 4 (58037) Diagnoses Left renal stone N20.0 Hypercholesterolemia E78.00 Colon cancer screening Z12.11 BPH (benign prostatic hyperplasia) N40.0 Right hip pain M25.551
[2023-12-28 15:36] VITALS: BP 108/70; PULSE 74; O2SAT 96; BMI 22.6
== END 2023-12-28 16:23 | disposition home or self-care (01) ==
PROVIDERS: PCP Internal Medicine; Visit Provider Internal Medicine
DX: N20.0 Calculus of kidney (principal); E78.00 Pure hypercholesterolemia, unspecified; Z12.11 Encounter for screening for malignant neoplasm of colon; N40.0 Benign prostatic hyperplasia without lower urinary tract symptoms; M25.551 Pain in right hip
CPT/HCPCS: 99214

== ENCOUNTER 2023-12-28 16:33 | Outpatient (REF) | payer MEDICARE, SELFPAY ==
--- NOTE | ~2023-12-28 | XR_ITS ---
EXAMINATION: XR HIP, RIGHT CLINICAL INFORMATION: Right hip pain. COMPARISON: None available. TECHNIQUE: Two views of the right hip. FINDINGS: No fracture. Alignment is anatomic. Hip joint space is maintained. Soft tissues are unremarkable. XR/XR hip RT w PEL1V IMPRESSION: Normal right hip.
== END 2023-12-28 16:34 | disposition home or self-care (01) ==
LOC: HO.XRAY 16:33
PROVIDERS: PCP Internal Medicine; Visit Provider Internal Medicine
DX: M25.551 Pain in right hip (principal)
CPT/HCPCS: 73502

== ENCOUNTER 2024-01-05 08:38 | Outpatient (REF) | payer MEDICARE, SELFPAY ==
[2024-01-05 08:50] LABS: MANUAL DIFF FLAG NO
[2024-01-05 09:30] LABS: Basophils Percent Auto 0.5 % (0-2); Eosinophils Absolute Auto 0.1 X10*3/uL (0.0-0.4); Eosinophils Percent Auto 2.2 % (0-4); Hematocrit 49.1 % (42.0-52.0); Hemoglobin 16.9 g/dl (14.0-18.0); Imm Gran Abs Auto 0.02 X10*3/uL (0.00-0.03); Imm Gran Pct Auto 0.3 % (0.0-0.4); Lymphocytes Percent Auto 31.2 % (20-40); Mean Corpuscular HGB Conc 34.4 g/dl (31.0-36.0); Mean Corpuscular Hemoglobin 32.9 pg (27.0-33.0); Mean Corpuscular Volume 95.5 fL (80.0-98.0); Mean Platelet Volume 9.5 fL (9.4-12.4); Monocytes Absolute Auto 0.7 X10*3/uL (0.1-1.2); Monocytes Percent Auto 11.3 % (2-11); Neutrophils Absolute Auto 3.5 x10*3/uL (2.0-8.3); Neutrophils Percent Auto 54.5 % (45-73); Platelet Count 307 X10*3/uL (160-400); Red Blood Count 5.14 X10*6/uL (4.60-5.80); Red Cell Distribution Width 12.7 % (11.0-16.0); White Blood Count 6.4 X10*3/uL (4.8-10.8)
[2024-01-05 10:00] LABS: Alanine Aminotransferase 10 U/L (0-40); Albumin Level 4.5 g/dL (3.5-5.0); Alkaline Phosphatase 62 U/L (39-117); Anion Gap 13 (12-20); Aspartate Amino Transferase 16 U/L (5-37); Bilirubin Total 0.9 mg/dL (0.0-1.0); Blood Urea Nitrogen 12 mg/dL (9-16); Calcium 10.2 mg/dL (8.4-10.2); Carbon Dioxide 27 mmol/L (22-29); Chloride 105 mmol/L (96-108); Cholesterol 243 mg/dL (<200); Estimated Glomerular Filt Rate > 60; Glucose Random 90 mg/dL (60-115); HDL Cholesterol 68 mg/dL (>40); LDL Cholesterol Calculated 151 mg/dL (<100); Potassium 4.2 mmol/L (3.3-5.1); Sodium 141 mmol/L (135-145); Total Protein 7.2 g/dL (6.5-8.0); Triglycerides 122 mg/dL (<150)
[2024-01-05 10:16] LABS: Free T4 (Free Thyroxine) 1.01 ng/dL (0.71-1.85)
[2024-01-05 11:30] LABS: Folate 8.1 ng/mL (> or = 4.0); Vitamin B12 425 pg/mL (200-900)
== END 2024-01-05 08:39 | disposition home or self-care (01) ==
LOC: HO.LAB 08:38
PROVIDERS: PCP Internal Medicine; Visit Provider Internal Medicine
DX: E78.00 Pure hypercholesterolemia, unspecified (principal); N40.0 Benign prostatic hyperplasia without lower urinary tract symptoms; Z12.5 Encounter for screening for malignant neoplasm of prostate
CPT/HCPCS: 36415; 80053; 80061; 82607; 82746; 84153; 84439; 84443; 85025

== ENCOUNTER 2024-01-31 08:46 | Outpatient (REF) | payer MEDICARE, SELFPAY ==
[2024-01-31 11:09] LABS: PSA,Total (Free>4and<10) 5.75 ng/mL (0.00-4.00)
[2024-02-02 13:28] LABS: Free Prostate Spec Ag 0.7 ng/mL; Percent Free Prostate Spec Ag 13 % (calc) (>25); Prostate Specific Ag Total 5.5 ng/mL (< OR = 4.0)
== END 2024-01-31 08:47 | disposition home or self-care (01) ==
LOC: HO.LAB 08:46
PROVIDERS: PCP Internal Medicine; Visit Provider Internal Medicine
DX: R97.20 Elevated prostate specific antigen [PSA] (principal); Z12.5 Encounter for screening for malignant neoplasm of prostate
CPT/HCPCS: 36415; 84153; 84154